=== PATIENT | male | born 1935 | race Caucasian/White ===

== ENCOUNTER 2018-05-27 20:45 | Inpatient (IN) ==
--- NOTE | 2018-05-27 21:33 | Diag Imaging Result Doc PS360 ---
EXAM: CHEST-1 VIEW 05/27/2018 HISTORY: fever, weak TECHNIQUE: AP portable at 2120 COMMENT: There is atelectasis or pneumonia in the right lower lobe and increased opacity in the left lower lobe which may be due to pulmonary edema or pneumonia. Compared to 05/17/2018 this is worse. IMPRESSION: Right basilar atelectasis versus pneumonia. Left lower lobe pneumonia. Electronically signed by Obed Corona 05/27/2018 9:30 PM
[2018-05-27] MEDS ORDERED: ZITHROMAX PO ONE (21:51)
[2018-05-27] MEDS ORDERED: ROCEPHIN 1 GM in NS 50 ML IV ONE (21:51)
[2018-05-27] MEDS ORDERED: NS 1,000 ML IV ONE (22:07)
[2018-05-27 22:20] LABS: BASO# 0.05 X1000 (0.0-0.2); BASO% 0.2 % (0.0-0.8); EOS% 0.3 % (0.0-10.0); HEMATOCRIT 33.1 % (42.0-52.0); HEMOGLOBIN 11.2 g/dL (14.0-18.0); IMM GRAN# 0.12 X1000 (0.0-0.04); IMM GRAN% 0.4 % (0.0-0.5); LYMPH# 0.31 X1000 (1.2-3.4); MCH 30.4 PG (27-31); MCHC 33.8 g/dL (33-37); MCV 89.9 FL (81-99); MONO# 0.82 X1000 (0.11-0.59); MONO% 2.5 % (1.7-9.3); MPV 8.5 FL (7.4-10.4); NEUT# 31.17 X1000 (1.4-6.5); NEUT% 95.6 % (42.2-75.2); PLT 429 X1000 (130-400); RBC 3.68 XMIL (4.7-6.1); RDW 14.8 % (11.5-14.5); WBC 32.57 X1000 (4.8-10.8)
[2018-05-27 22:51] LABS: AGAP 12; ALB/GLOB RATIO 1.1; ALBUMIN 3.2 g/dL (3.5-5.0); ALKALINE PHOSPHATASE 81 U/L (32-122); BUN 24 mg/dL (8-22); CALCIUM 8.7 mg/dL (8.8-10.2); CHLORIDE 95 mmol/L (98-107); COSMO 270; CREATININE 0.9 mg/dL (0.7-1.2); ESTIMATED GFR > 60; GLUCOSE 99 mg/dL (70-104); GOT 33 U/L (10-34); GPT 38 U/L (10-44); POTASSIUM 4.4 mmol/L (3.5-5.1); SODIUM 133 mmol/L (136-145); TCO2 26 mmol/L (25-35); TOTAL BILIRUBIN 0.28 mg/dL (0.20-1.00); TOTAL PROTEIN 6.1 g/dL (6.3-8.3)
[2018-05-27 22:58] LABS: LYMPHS 2 % (21-51); MONO 2 % (1-9); SEGS 96 % (42-75)
--- NOTE | 2018-05-27 23:31 | PROVIDER DOCUMENTATION ---
This chart was entered by Samm Paz Scribe, acting as scribe for Rajesh Moon MD. HPI-General Adult - General Stated Complaint: weakness Time Seen by Provider: 05/27/18 20:53 Source: patient Allergies/Adverse Reactions: Patient Allergies Allergy/AdvReac Type Severity Reaction Status Date / Time No Known Allergies Allergy Verified 10/21/11 10:04 Home Medications: Home Medication List Medication Instructions Recorded Confirmed Last Taken Type Finasteride [Proscar] 5 mg PO DAILY 10/21/11 10/21/11 10/21/11 History Isosorbide Mononitrate E.r. [Imdur] 60 mg PO DAILY 10/21/11 10/21/11 10/20/11 History Meloxicam [Mobic] 7.5 mg PO DAILY 10/21/11 10/21/11 10/20/11 History Metoprolol Succinate 25 mg PO BID 10/21/11 10/21/11 10/21/11 History Nitroglycerin Sl [Nitroglycerin] 0.4 mg SL DIRECTED PRN PRN 10/21/11 10/21/11 Unknown History SIMVAstatin [Zocor] 40 mg PO QHS 10/21/11 10/21/11 10/20/11 History Acetaminophen [Tylenol Extra 500 mg PO Q8H PRN PRN #0 tablet 10/24/11 Unknown Rx Strength] Aspirin [Aspirin EC] 81 mg PO DAILY #0 tablet.dr 10/24/11 Unknown Rx Lisinopril [Zestril] 20 mg PO DAILY #30 tablet 10/24/11 Unknown Rx Polyethylene Glycol 3350 [Miralax] 17 gm PO DAILY PRN #0 powd.pack 10/24/11 Unknown Rx - History of Present Illness -Gen Adult Nature of Presenting Problems: Pt is a 83 y/o M comes to the ED by EMS with weakness that began around 4:30 today. He reports the last 6 weeks he has had an intermittent fever that got as high as 102 at home today. He denies a cough, SOB, chest pain. He reports some mild swelling in his feet. Location of Pain/Injury: reports: generalized (weakness) Pain Radiation: reports: no radiation Severity: reports: mild Onset/Duration: reports: this afternoon Timing: reports: still present Context/Activities at Onset: reports: none Modifying Factors: improves with: nothing Associated Symptoms: reports: fever/chills, weakness. denies: back/neck pain, chest pain, cough, diaphoresis, diarrhea, dizziness, shortness of breath, trouble walking Similar Symptoms Previously?: No Recently seen or treated by another doctor?: No Review of Systems - Adult - REVIEW OF SYSTEMS - ADULT Constitutional: reports: fever, other (weakness). denies: chills Eyes: reports: no symptoms reported Ears, Nose, Mouth & Throat: denies: ear pain, throat pain Cardiovascular: reports: edema. denies: chest pain, palpitations Respiratory: denies: cough, shortness of breath, wheezing Gastrointestinal: denies: nausea, vomiting Genitourinary: denies: dysuria, discharge Musculoskeletal: denies: back pain, neck pain Integumentary: reports: no symptoms reported Neurological: denies: dizziness/vertigo, headache/migraines Psychiatric: reports: no symptoms reported Endocrine: reports: no symptoms reported Hematologic/Lymphatic: reports: no symptoms reported Allergic/Immunologic: reports: no symptoms reported All Other Systems: Reviewed and Negative Past History - Adult - PAST MEDICAL HISTORY-ADULT Review of Records: reports: Old Records Reviewed, Nursing Assessment Review, Medications Reviewed - SOCIAL HISTORY Smoking: non-smoker Living Situation: family Physical Exam-General - PHYSICAL EXAM-ADULT Initial Vital Signs Reviewed: Yes - CONSTITUTIONAL General Appearance: appears well, alert, no apparent distress - EYES Eyes: PERRL/EOMI, pink conjunctivae - HEAD, EARS, NOSE, MOUTH & THROAT HENMT: moist mucous membranes, normal ENT inspection, TMs normal, pharynx normal - NECK Neck: non-tender, full range of motion, supple, normal inspection - RESPIRATORY Respiratory: no pleuratic chest pain, no respiratory distress, no accessory muscle use, crackles (right base) - CARDIOVASCULAR Cardiovascular: normal peripheral pulses, tachycardia - GASTROINTESTINAL (ABDOMEN) Abdominal Exam: normal bowel sounds, non tender, soft - MUSCULOSKELETAL Back Exam: no CVA tenderness, no vertebral tenderness Extremity: normal range of motion, non-tender, normal gait, normal inspection, no pedal edema - SKIN Integumentary: normal color, normal turgor, warm/dry - NEUROLOGIC Neurologic: grossly normal, no motor/sensory deficits - PSYCHIATRIC Psych/Mental Status: normal mood/affect, normal thought content, normal thought process, oriented x 3 Progress - PLAN OF CARE/RESULTS Progress/Plan/Lab Results: Vital Signs - 8 hr 05/27/18 21:02 Temperature 98.7 F Pulse Rate 103 H Respiratory Rate 21 Blood Pressure 109/48 O2 Sat by Pulse Oximetry 96 Result Diagrams: 05/27/18 21:04 05/27/18 21:04 - EKG 1 Time of EKG reading by physician:: 21:40 EKG Read and Signed by:: Rajesh Moon EKG Interpretation (*Must complete 3 of following elements*): Abnormal Rate: 98 Rhythm: Sinus with occasional PVC QRS: LBB - XRAY 1 XRAY Study: Chest Impression: Abnormal ( EXAM: CHEST-1 VIEW 05/27/2018 HISTORY: fever, weak TECHNIQUE: AP portable at 2119 COMMENT: There is atelectasis or pneumonia in the right lower lobe and increased opacity in the left lower lobe which may be due to pulmonary edema or pneumonia. Compared to 05/17/2018 this is worse. IMPRESSION: Right basilar atelectasis versus pneumonia. Left lower lobe pneumonia. Electronically signed by Obed Corona 05/27/2018 9:30 PM 05/27/182129 Interpreting Physician: Obed Corona MD Dictated Date/Time: 05/27/182128 cc: Rajesh Moon MD; Adam Motta MD) - CONSULTS/PCP/HOSPITALIST Notification #1 *Consult/PCP/Hospitalist*: Hospitalist- Dr Dan Time Discussed: 22:55 Reason/Comments: Admission Consult Disposition: Admit (accepts) Departure - Departure Date of Disposition Decision: 05/27/18 Time of Disposition Decision: 22:33 DIAGNOSIS: Basal pneumonia of both lungs, Hypotension Disposition: ADMITTED INPATIENT 09 Certified Medical Emergency: Emergent Condition: Good Referrals and Follow-Ups: Adam Motta MD [Primary Care Provider] - - Critical Care Note This patient required my direct & personal management of CC.: No Attestation - Physician/ INDU Attestation Patient care was provided by Advanced Practice Provider:: No The physician spent face to face time with patient:: Yes Advanced Practice Provider documentation review:: Supervising physician onsite and consulted in the evaluation and care of this patient. The physician did have a face to face encounter with the patient. This chart was documented by the indicated scribe, (Samm Paz Scribe) and a ccurately reflects the services I performed and decisions made by me, Rajesh Moon MD, as attested by the provider's signature.
--- NOTE | 2018-05-28 00:38 | HISTORY AND PHYSICAL ---
PRIMARY CARE PHYSICIAN: Dr. Motta. CHIEF COMPLAINT: Elevated temperature, and not feeling well for the past several days. HISTORY OF PRESENTING ILLNESS: This is an 83-year-old male with a history of bladder cancer, who had presented to the emergency department with several days history of having fever, elevated heart rate, and low blood pressure. The patient states that it seemed to be worsening and subsequently he had come to the emergency department. The patient states that he had a home temperature of 102.6 degrees. He was evaluated in the emergency department, he had imaging done which did show pneumonia, subsequently he will require admission for further management. At the time of my examination the patient denied any headache, nausea, vomiting, diarrhea, chest pain, hemoptysis or melena, but complained of cough, fever and not feeling well. PAST MEDICAL HISTORY: Includes bladder cancer, hypertension, and hyperlipidemia. PAST SURGICAL HISTORY: Cervical fusion. ALLERGIES: No known drug allergies. CURRENT MEDICATIONS: Include aspirin 81 mg p.o. daily, Proscar 5 mg p.o. daily, Imdur 60 mg p.o. daily, lisinopril 20 mg p.o. daily, metoprolol 25 mg p.o. b.i.d., simvastatin 40 mg p.o. at bedtime. SOCIAL HISTORY: He is a former smoker. Denies any history of alcohol or illicit drug use. FAMILY HISTORY: No history of coronary disease. REVIEW OF SYSTEMS: Fourteen point review of system is as in the HPI, other systems negative. PHYSICAL EXAMINATION: GENERAL: Cooperative, friendly male. He is resting comfortably. VITAL SIGNS: Temperature 98.7 degrees now, pulse 103, respirations 21, blood pressure 109/48. HEENT: Atraumatic, normocephalic. Extraocular movements intact. PERRLA. NECK: No masses. CHEST: Bibasilar rales. CARDIOVASCULAR: Regular rate and rhythm. ABDOMEN: Soft. Positive bowel sounds. EXTREMITIES: No edema. NEUROLOGIC: He is awake, alert and oriented x3. GENITOURINARY: No bladder distention. SKIN: Warm. LABORATORIES AND STUDIES: WBC is 32.57, hemoglobin is 11.2, hematocrit is 33.1, platelets 429,000. Sodium 133, potassium 4.4, chloride 95, CO2 is 26, BUN is 24, creatinine 0.9, glucose is 99. Chest x-ray shows right basal atelectasis versus pneumonia and left lower lobe pneumonia. ASSESSMENT: This is an 83-year-old male with a history of bladder cancer, hypertension, hyperlipidemia and hyperlipidemia, who had presented to the emergency department with several days history of having fever and cough. He was evaluated in the emergency department, he had imaging done which was consistent with pneumonia. Subsequently he will require admission for further management. 1. Community-acquired pneumonia. 2. Hypertension. 3. Hyperlipidemia. PLAN: 1. We will admit the patient to medical floor with telemetry. 2. Check blood cultures. Start the patient on IV antibiotics. 3. Monitor blood pressure closely. 4. Restart other home medications. 5. Put the patient on DVT prophylaxis with SCDs. 6. We will continue to follow, reassess and make further recommendation based on the patient's clinical course. cc: Oswaldo Dan MD
[2018-05-28] MEDS ORDERED: ZITHROMAX 500 MG/NS 500 MG/250 ML IVPB IV SCH (00:58)
[2018-05-28 01:04] LABS: URINE SOURCE CLEAN CATCH
[2018-05-28 01:07] LABS: BILIRUBIN URINE NEGATIVE (NEGATIVE); BLOOD URINE NEGATIVE (NEGATIVE); COLOR YELLOW; GLUCOSE URINE NEGATIVE (NEGATIVE); KETONE URINE NEGATIVE (NEGATIVE); LEUKOCYTES URINE SMALL (NEGATIVE); NITRITE URINE NEGATIVE (NEGATIVE); PH URINE 6.5; PROTEIN URINE TRACE mg/dL (NEGATIVE); SP GRAVITY URINE 1.017; TURBIDITY URINE CLEAR (CLEAR); UROBILINOGEN URINE NORMAL (NORMAL)
[2018-05-28 01:08] LABS: UR EPITHELIAL CELLS <10 /HPF (<10); URINE BACTERIA NEGATIVE /HPF; URINE RBC <10 /HPF (<10)
[2018-05-28] MEDS ORDERED: NS 1,000 ML ONE (02:30)
[2018-05-28] MEDS: NS 1,000 ML IV SCH ×4 (02:34→17:08)
[2018-05-28 05:52] LABS: BASO# 0.04 X1000 (0.0-0.2); BASO% 0.1 % (0.0-0.8); EOS# 0.02 X1000 (0.0-0.7); EOS% 0.1 % (0.0-10.0); HEMATOCRIT 31.1 % (42.0-52.0); HEMOGLOBIN 10.4 g/dL (14.0-18.0); IMM GRAN% 0.4 % (0.0-0.5); LYMPH# 0.29 X1000 (1.2-3.4); MCH 30.1 PG (27-31); MCHC 33.4 g/dL (33-37); MCV 89.9 FL (81-99); MONO# 0.93 X1000 (0.11-0.59); MONO% 3.3 % (1.7-9.3); MPV 8.1 FL (7.4-10.4); NEUT# 26.69 X1000 (1.4-6.5); NEUT% 95.1 % (42.2-75.2); PLT 387 X1000 (130-400); RBC 3.46 XMIL (4.7-6.1); RDW 14.8 % (11.5-14.5); WBC 28.07 X1000 (4.8-10.8)
[2018-05-28 06:08] LABS: AGAP 5; BUN 22 mg/dL (8-22); CALCIUM 8.2 mg/dL (8.8-10.2); CHLORIDE 99 mmol/L (98-107); COSMO 268; CREATININE 0.8 mg/dL (0.7-1.2); ESTIMATED GFR > 60; GLUCOSE 100 mg/dL (70-104); POTASSIUM 4.4 mmol/L (3.5-5.1); SODIUM 132 mmol/L (136-145); TCO2 28 mmol/L (25-35)
[2018-05-28] MEDS ORDERED: SODIUM CHLORIDE 0.9% INJ SCH (07:36)
[2018-05-28] MEDS ORDERED: TYLENOL PO PRN (07:36)
--- NOTE | 2018-05-28 07:42 | PROGRESS NOTE ---
DATE: 05/28/2018 SUBJECTIVE: Mr. Rosales was admitted with high-grade fever, some chills, not responding to outpatient treatment. Chest x-ray in the emergency room did reveal bilateral pneumonia. The patient did receive 2 rounds of IV antibiotics as an outpatient. Urinalysis did reveal 10 to 20 WBC, nitrite was negative. Patient had urine culture and blood culture done, results are pending. Known case of hypertension, history of bladder cancer, enlarged prostate, osteoarthritis. Admission history and physical noted. OBJECTIVE: Vital Signs: Reviewed. Blood pressure low normal. Neck: Supple. No JVD. Lungs: Inspiratory crepitations both the bases. Cardiovascular: S1 and S2 heard. Abdomen: Soft, globular. Bowel sounds present. Extremities: No cyanosis, clubbing. No acute DVT. Central Nervous System: Alert, awake, able to move all 4 limbs. CONSIDERATIONS: 1. Bilateral lower lobe pneumonia. 2. Urinalysis did reveal urinary tract infection. 3. I am concerned about possible prostatitis. 4. History of hypertension, but his blood pressure is low. 5. Gastritis and reflux disease. 6. Osteoarthritis. I am going to start the patient on a small dose of steroid. Check his PSA. I am going to consider CT scan of the abdomen and pelvis for further evaluation. Continue rest of the treatment and close observation. Overall plan discussed with the patient, and he is in agreement. My other differential diagnosis is chronic or recurrent prostatitis. cc: Adam Motta MD
--- NOTE | 2018-05-28 07:44 | EKG Report ---
Test Performed on : 05/27/2018 9:40:03 PM Test Reason : seakness Blood Pressure : / mmHG Vent. Rate : 098 BPM Atrial Rate : 098 BPM P-R Int : 184 ms QRS Dur : 158 ms QT Int : 402 ms P-R-T Axes : 059 -15 154 degrees QTc Int : 513 ms Sinus rhythm. with occasional premature ventricular complexes. Left bundle branch block Abnormal ECG When compared with ECG of 24-OCT-2011 06:58, premature ventricular complexes. are now present Vent. rate has increased BY 40 BPM Left bundle branch block is now present Unconfirmed Result
[2018-05-28] MEDS: LEVAQUIN 500 MG/D5W 500 MG/100 ML IVPB IV SCH (08:26)
[2018-05-28] MEDS: LOVENOX SUBQ SCH (08:27)
[2018-05-28] MEDS: ASPIRIN EC PO SCH (08:27)
[2018-05-28] MEDS: PROTONIX IV SCH (08:27)
[2018-05-28] MEDS: PRINIVIL PO SCH (08:27)
--- NOTE | 2018-05-28 08:34 | Diag Imaging Result Doc PS360 ---
EXAM: CT ABDOMEN/PELVIS W/O CONTRAST INDICATION: fever TECHNIQUE: This exam was performed using automated exposure control, adjustment of mA or kV according to patient size, and/or use of iterative reconstruction technique. COMPARISON: None. FINDINGS: There is a calcified pleural plaque at the right lung base. There is a calcified granuloma in the lingula. There is bibasilar atelectasis and fibrosis. A superimposed infiltrate at the right lung base cannot be excluded. There is trace pleural fluid at the right lung base. There are numerous calcified granulomata within the spleen. There are a few calcified granulomata in the liver. The liver is essentially unremarkable, otherwise. The gallbladder, pancreas, and adrenal glands are essentially unremarkable. There is bilateral symmetric perinephric stranding, nonspecific but probably related to perinephric fibrosis, which can be seen with renal insufficiency. Bilateral pyelonephritis is less likely but possible. Please correlate clinically. There are no renal or ureteral stones and there is no hydronephrosis. The urinary bladder is grossly unremarkable. There is a small amount of impacted stool in the rectum. There is uncomplicated diverticulosis coli. There is no evidence of bowel obstruction. The remainder of the GI tract is essentially unremarkable. There is aortoiliac atherosclerotic calcification. No free abdominal gas or significant free fluid is identified. There is multilevel degenerative arthropathy throughout the spine. IMPRESSION: 1.Atelectasis and scarring at the lung bases and possibly superimposed pneumonia the right lung base. 2.Bilateral symmetric perinephric stranding that is probably chronic. Bilateral pyelonephritis is possible but less likely. 3.Small rectal fecal impaction. 4.Other incidental/nonacute findings detailed above. Electronically signed by Lamberto Vela 05/28/2018 8:32 AM
[2018-05-28] MEDS: TOPROL XL PO SCH ×2 (08:43→20:40)
[2018-05-28] MEDS: IMDUR PO SCH (09:15)
[2018-05-28] MEDS: PROSCAR PO SCH (09:15)
[2018-05-28] MEDS: CUBICIN 500 MG in NS 100 ML IV SCH (09:50)
[2018-05-28] MEDS: ZOCOR PO SCH (20:41)
[2018-05-28] MEDS ORDERED: ROCEPHIN 1 GM in NS 50 ML IV SCH (21:00)
--- NOTE | 2018-05-29 06:30 | PROGRESS NOTE ---
DATE: 05/29/2018 SUBJECTIVE: Mr. Rosales is doing better. He denied any high-grade fever or chills. Mild cough. No expectoration. No dysuria or hematuria. Denied any diarrhea. OBJECTIVE: Vitals: His vital signs are noted. The patient remains afebrile. Neck: Supple. No JVD. Lungs: Bilateral good air entry present. Occasional wheezing. CVS: S1 and S2 heard. Abdomen: Soft, nontender. Bowel sounds present. 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 DIAGNOSTIC DATA: I did CT scan of the abdomen and pelvis to look for source of fever and also concerned about prostatitis. It did reveal atelectasis and scarring at the lung base and possibly superimposed pneumonia on the right lung base. Bilateral symmetric perinephric stranding, probably chronic, I doubt pyelonephritis. Small rectal fecal impaction. I am going to discuss with the radiologist about the prostate. ASSESSMENT AND PLAN: The patient's other problems includes leukocytosis, hypertension, osteoarthritis, and history of bladder cancer. Lab data done yesterday did show improvement in leukocyte count. The patient did have some hyponatremia. We will continue IV hydration. I did check his PSA to evaluate for prostatitis and it was okay. Overall plan discussed with the patient. The patient understood and agreed. cc: Adam Motta MD
[2018-05-29] MEDS: NS 1,000 ML IV SCH ×3 (07:35→20:59)
[2018-05-29 07:47] LABS: BASO# 0.02 X1000 (0.0-0.2); BASO% 0.1 % (0.0-0.8); EOS# 0.04 X1000 (0.0-0.7); EOS% 0.2 % (0.0-10.0); HEMATOCRIT 29.5 % (42.0-52.0); HEMOGLOBIN 9.6 g/dL (14.0-18.0); IMM GRAN# 0.07 X1000 (0.0-0.04); IMM GRAN% 0.4 % (0.0-0.5); LYMPH# 0.82 X1000 (1.2-3.4); LYMPH% 4.6 % (20.5-51.1); MCH 29.7 PG (27-31); MCHC 32.5 g/dL (33-37); MCV 91.3 FL (81-99); MONO# 1.03 X1000 (0.11-0.59); MONO% 5.7 % (1.7-9.3); MPV 8.4 FL (7.4-10.4); NEUT# 15.97 X1000 (1.4-6.5); PLT 349 X1000 (130-400); RBC 3.23 XMIL (4.7-6.1); RDW 15.1 % (11.5-14.5); WBC 17.95 X1000 (4.8-10.8)
[2018-05-29 08:11] LABS: HEMOGLOBIN A1C 5.4 % (4.8-6.0)
[2018-05-29 08:31] LABS: BANDS 6 % (0-1); LYMPHS 2 % (21-51); MONO 6 % (1-9); SEGS 86 % (42-75)
[2018-05-29] MEDS: PRINIVIL PO SCH (09:08)
[2018-05-29] MEDS: LEVAQUIN 500 MG/D5W 500 MG/100 ML IVPB IV SCH (09:08)
[2018-05-29] MEDS: LOVENOX SUBQ SCH (09:08)
[2018-05-29] MEDS: PROSCAR PO SCH (09:09)
[2018-05-29] MEDS: TOPROL XL PO SCH ×2 (09:09→20:58)
[2018-05-29] MEDS: IMDUR PO SCH (09:09)
[2018-05-29] MEDS: PROTONIX IV SCH (09:09)
[2018-05-29] MEDS: CUBICIN 500 MG in NS 100 ML IV SCH (09:11)
[2018-05-29] MEDS: ASPIRIN EC PO SCH (09:13)
[2018-05-29 19:43] VITALS: BP 138/87
[2018-05-29] MEDS: ZOCOR PO SCH (20:58)
[2018-05-30] MEDS ORDERED: SODIUM BICARBONATE 8.4% ONE (03:30)
[2018-05-30] MEDS ORDERED: EPINEPHRINE SYRINGE ONE (03:30)
--- NOTE | 2018-05-30 06:59 | DISCHARGE SUMMARY ---
ADMISSION DATE: 05/28/2018 DISCHARGE DATE: FINAL DISCHARGE DIAGNOSES: 1. Community-acquired pneumonia, not responding to outpatient treatment. 2. Hypertension. 3. Hyperlipidemia. 4. History of coronary artery disease. 5. Bladder cancer. 6. Benign prostatic hypertrophy. 7. Gastritis and reflux disease. 8. Possibility of prostatitis cannot be ruled out. HISTORY OF PRESENT ILLNESS: Mr. Rosales is an 83-year-old white gentleman admitted with fever, chills, fever of 102 degree, significant leukocytosis with left shift. The patient is sick for 2 to 3 weeks. The patient was on outpatient antibiotics. Initially the patient did have chest congestion, cough symptoms suggestive of UTI. I offered the patient hospitalization but he was declining, though he was getting better but then, again, patient got sicker, came to the emergency room. Found to have significant leukocytosis, admitted for further care. HOSPITAL COURSE: Patient was started on IV antibiotics, symptomatic treatment. His clinical condition was getting better. I evaluated patient yesterday. I was planning to discharge him, hopefully, tomorrow. Last night, the patient became bradycardic, nurses evaluated the patient. He was unresponsive. CPR was started, the ER physician ran the code, they could not revive the patient and the patient was pronounced at 3:47 on May 30, 2018. LABORATORY DATA: Initial WBC count was 32.57, one done yesterday was 17.95, which was improving, last hemoglobin 9.6, hematocrit 29.5, platelet count 349,000. Electrolytes done on 05/28, sodium 132, potassium 4.4, magnesium 1.8. Hemoglobin A1c 5.4. I did check PSA, it was 2.99. Urinalysis did reveal 10 to 20 WBCs. Blood culture no growth. Urine culture mixed garcia. IMAGING: His chest x-ray, right basilar atelectasis versus pneumonia, left lower lobe pneumonia. He had a CT scan of the abdomen and pelvis done, which revealed bilateral pneumonia, small rectal fecal impaction. cc: Adam Motta MD
--- NOTE | 2018-06-07 02:33 | DISCHARGE SUMMARY ---
ADMISSION DATE: 05/28/2018 DISCHARGE DATE: 05/30/2018 ADDENDUM: The patient's presentation is consistent with systemic inflammatory response syndrome. cc: Adam Motta MD
== END 2018-05-30 03:37 | disposition expired | DRG 194 ==
LOC: SUPCPDRO → ED 20:45 → EDIPHOLD 05-28 00:46 → SUATTDRO 05-28 00:46 → 3N 05-28 11:15
PROVIDERS: ADMIT Internal Medicine; ATTEND Internal Medicine
CPT/HCPCS: 31500; 71010; 71045; 74176; 80048; 80053; 81001; 82550; 82948; 83036; 83605; 83735; 84153; 85025; 87040; 87088; 92950; 93005; 96365; 96366; 96367; 97116; 97162; 99285; A9270; C9113; J0171; J0456; J0696; J0878; J1650; J1956; J7030; S0138; S0164; XXXXX